=== PATIENT | male | born 1970 ===

== ENCOUNTER 2017-02-23 16:05 | Emergency (ER) | payer BC ==
--- NOTE | 2017-02-23 17:13 | ED ---
Medical Screening - HPI Summary HPI Summary: 47M presents for medical refill. He states his has hypothyroidism and is down to his last dose of medication. He just moved here and does not have a primary yet. he has been on this dose for a year. he has no complaints. <WaiGina - Last Filed: 02/23/17 17:55> <Andra Mack - Last Filed: 02/23/17 18:03> - History of Current Complaint Chief Complaint: UCMedRefill Stated Complaint: MED REFILL Time Seen by Provider: 02/23/17 16:52 PMH/Surg Hx/FS Hx/Imm Hx Endocrine/Hematology History: Reports: Hx Thyroid Disease - hypothyroidism Cardiovascular History: Denies: Hx Atrial Fibrillation Infectious Disease History: No Infectious Disease History: Denies: Traveled Outside the [place] in Last 30 Days - Family History Known Family History: Positive: Hypertension - Social History Alcohol Use: Daily Substance Use Type: Reports: None Smoking Status (MU): Never Smoked Tobacco <Gina Carreno - Last Filed: 02/23/17 17:55> Review of Systems Negative: Fever Negative: Chest Pain Negative: Shortness Of Breath All Other Systems Reviewed And Are Negative: Yes <Gina Carreno - Last Filed: 02/23/17 17:55> Physical Exam Triage Information Reviewed: Yes Vital Signs On Initial Exam: Initial Vitals Temp Pulse Resp BP Pulse Ox 98.8 F 77 18 128/77 100 02/23/17 16:30 02/23/17 16:30 02/23/17 16:30 02/23/17 16:30 02/23/17 16:30 Vital Signs Reviewed: Yes Appearance: Positive: Well-Appearing Skin: Positive: Warm, Dry Head/Face: Positive: Normal Head/Face Inspection Eyes: Positive: Normal, Conjunctiva Clear Respiratory/Lung Sounds: Positive: Clear to Auscultation, Breath Sounds Present Cardiovascular: Positive: Normal, RRR Abdomen Description: Positive: Nontender, Soft Bowel Sounds: Positive: Present Musculoskeletal: Positive: Normal Neurological: Positive: Normal Psychiatric: Positive: Normal <Gina Carreno - Last Filed: 02/23/17 17:55> Vital Signs On Initial Exam: Initial Vitals Temp Pulse Resp BP Pulse Ox 98.8 F 77 18 128/77 100 02/23/17 16:30 02/23/17 16:30 02/23/17 16:30 02/23/17 16:30 02/23/17 16:30 <Andra Mack - Last Filed: 02/23/17 18:03> Diagnostics - Vital Signs Vital Signs Temp Pulse Resp BP Pulse Ox 02/23/17 16:30 98.8 F 77 18 128/77 100 <Gina Carreno - Last Filed: 02/23/17 17:55> - Vital Signs Vital Signs Temp Pulse Resp BP Pulse Ox 02/23/17 16:30 98.8 F 77 18 128/77 100 <Andra Mack - Last Filed: 02/23/17 18:03> Course/Dx - Course Course Of Treatment: 47M presents for medical refill. He states his has hypothyroidism and is down to his last dose of medication. He just moved here and does not have a primary yet. he has been on this dose for a year. he has no complaints. normal pe. sent script for medication and gave referral for primary. patient understand and agrees with plan. <Gina Carreno - Last Filed: 02/23/17 17:55> <Andra Mack - Last Filed: 02/23/17 18:03> - Diagnoses Provider Diagnoses: Medication refill Discharge <Gina Carreno - Last Filed: 02/23/17 17:55> <Andra Mack - Last Filed: 02/23/17 18:03> - Discharge Plan Condition: Good Disposition: HOME Prescriptions: Levothyroxine TAB* [Synthroid TAB*] 125 mcg PO 0800 #30 tab Referrals: [facility] [Outside] Additional Instructions: Establish care with primary to follow up Attestation Statement User Type: Provider - I was available for consult. This patient was seen by the [facility]. The patient was not presented to, seen by, or examined by me. -Walter <Andra Mack - Last Filed: 02/23/17 18:03>
== END 2017-02-23 17:28 | disposition home or self-care (01) ==
LOC: UCEAST 16:05
DX: E03.9 Hypothyroidism, unspecified (principal)
CPT/HCPCS: 99202; G0463